=== PATIENT | female | born 1990 | race African-American/Black ===

== ENCOUNTER 2021-04-23 04:40 | Emergency (ER) | payer MEDICAID ==
[~2021-04-23] VITALS: Ht 172.7 cm; Wt 68.0 kg
[2021-04-23] MEDS ORDERED: MORPHINE SULFATE 4 MG/ML CPJ (NOT FOR IM USE) IV STA (04:52)
[2021-04-23] MEDS ORDERED: ONDANSETRON HCL 4MG/2ML INJ IV STA (04:52)
[2021-04-23] MEDS ORDERED: SODIUM CHLORIDE 0.9% 1,000 ML IV ONE (05:00)
[2021-04-23] MEDS ORDERED: CEFAZOLIN 1000MG PREMIX 50 ML IV ONE (05:00)
[2021-04-23] MEDS ORDERED: TETANUS, DIPHTHERIA, PERTUSSIS VAC/PF 0.5ML (>10YR OLD) IM ONE (05:00)
[2021-04-23] MEDS ORDERED: LIDOCAINE HCL/EPINEPHRINE 1%-EPI 1:100,000 20 ML VIAL INFIL ONE (05:00)
[2021-04-23 05:15] LABS: BASOPHILS % 0.3 % (0.0-2.0); EOSINOPHILS % 0.5 % (0.0-5.0); HEMATOCRIT. 36.4 % (36.0-48.0); HEMOGLOBIN. 12.1 g/dL (12.0-16.0); LYMPHOCYTES % 22.3 % (20.0-50.0); MEAN CORPUSCULAR HEMOGLOBIN 29.1 pg (28.0-32.0); MEAN CORPUSCULAR VOLUME 87.5 fL (81.0-99.0); MEAN PLATELET VOLUME 7.2 fl (7.4-10.4); MONOCYTES % 8.2 % (2.0-8.0); NEUTROPHILS % 68.7 % (40.0-76.0); PLATELET 491 x1000/uL (130-400); RED BLOOD CELL COUNT 4.17 mill/uL (4.2-5.4); RED CELL DISTRIBUTION WIDTH 13.9 % (11.6-14.6)
[2021-04-23 05:22] LABS: CHLORIDE 105 mEq/L (98-107)
[2021-04-23 05:25] LABS: INR 1.1; PARTIAL THROMBOPLASTIN TIME 25.3 sec (23.4-31.0); PROTHROMBIN TIME 11.4 sec (9.6-11.0)
[2021-04-23 05:28] LABS: HCG SCREEN NEGATIVE
[2021-04-23 05:36] VITALS: BP 125/86
[2021-04-23] MEDS ORDERED: TOPUD PO (07:59)
[2021-04-23] MEDS ORDERED: OXYCODONE HCL/ACETAMINOPHEN 5/325MG TABLET PO ONE (08:00)
[2021-04-23] MEDS ORDERED: IBUP-2028 PO (08:10)
[2021-04-23] MEDS ORDERED: T3 PO (08:10)
== END 2021-04-23 08:40 | disposition home or self-care (01) ==
LOC: ER 04:40
DX: S21.212A Laceration without foreign body of left back wall of thorax without penetration into thoracic cavity, initial encounter (principal); X99.9XXA Assault by unspecified sharp object, initial encounter; Y93.89 Activity, other specified; Y92.89 Other specified places as the place of occurrence of the external cause
CPT/HCPCS: 12001; 36415; 71045; 80053; 83690; 84703; 85025; 85610; 85730; 86850; 86900; 86901; 90471; 90715; 96365; 96375; 99285; J2270; J2405; J3490; J7030; 99284

== ENCOUNTER 2021-06-12 16:17 | Emergency (ER) | payer MEDICAID ==
[~2021-06-12 16:17] MED LIST: IBUP-2028 PO; T3 PO
== END 2021-06-12 17:53 | disposition left against medical advice (07) ==
LOC: ER 16:17
DX: Z53.21 Procedure and treatment not carried out due to patient leaving prior to being seen by health care provider (principal)